=== PATIENT | female | born 1950 | race American Indian/Alaskan Native ===

== ENCOUNTER 2017-11-10 14:54 | Emergency (ER) | payer MEDICARE ==
[2017-11-10 14:54] VITALS: BMI 36.8
--- NOTE | 2017-11-10 15:46 | C.PDOC ---
History Of Present Illness 67 year old female, whose PMHx includes HTN, presents to the ED for evaluation after she felt dizzy and "whoozy" easlier today. Patient works at the [employer]'s office; her coworker took her blood pressure, found it to be systolic 273. Repeat blood pressure was systolic 219. Patient was evaluated by her PMD Dr. Campbell on 11/05, who increased her Losartan dosing. Patient states Losartan 100mg BID, Coreg 25mg, and Metformin prophylactically. Patient denies chest pain, shortness of breath, and headache. surgical history includes tonsillectomy Patient denies allergies. She denies alcohol/tobacco use. Time Seen by Provider: 11/10/17 15:03 Chief Complaint (Nursing): High Blood Pressure History Per: Patient History/Exam Limitations: no limitations Onset/Duration Of Symptoms: Hrs Current Symptoms Are (Timing): Still Present Associated Symptoms: denies: Chest Pain Exacerbating Factor(s): Pos: Recent Change In Medication Additional History Per: Patient Past Medical History Reviewed: Historical Data, Nursing Documentation, Vital Signs Vital Signs: Last Vital Signs Temp 98.4 F 11/10/17 18:50 Pulse 52 L 11/10/17 18:50 Resp 16 11/10/17 18:50 BP 158/52 H 11/10/17 18:50 Pulse Ox 99 11/10/17 22:59 - Medical History PMH: Diabetes, HTN Surgical History: Tonsillectomy - [facility] COLONOSCOPY (10/27/02) Family History: States: Unknown Family Hx - Social History Hx Tobacco Use: No Hx Alcohol Use: No Hx Substance Use: No - Immunization History Hx Tetanus Toxoid Vaccination: No Hx Influenza Vaccination: No Hx Pneumococcal Vaccination: No Review Of Systems Constitutional: Negative for: Fever, Chills Eyes: Negative for: Pain, Vision Change, Conjunctivae Inflammation ENT: Negative for: Ear Pain, Ear Discharge, Nose Pain, Nose Discharge Cardiovascular: Negative for: Chest Pain, Palpitations, Orthopnea, Paroxysmal Noc. Dyspnea, Edema, Light Headedness Respiratory: Negative for: Cough, Shortness of Breath, Hemoptysis, SOB with Excertion, Pleuritic Pain, Sputum, Wheezing Gastrointestinal: Negative for: Nausea, Vomiting, Abdominal Pain, Constipation Genitourinary: Negative for: Dysuria, Frequency, Incontinence, Hematuria Musculoskeletal: Negative for: Neck Pain, Shoulder Pain, Back Pain, Hand Pain Skin: Negative for: Rash Neurological: Positive for: Dizziness. Negative for: Weakness, Numbness, Incoordination, Change in Speech, Confusion, Seizures, Altered Mental Status, Headache Psych: Negative for: Anxiety, Depression, Psychosis Physical Exam - Physical Exam Appears: Non-toxic, No Acute Distress Skin: Normal Color Head: Atraumatic Eye(s): bilateral: Normal Inspection, PERRL, EOMI Ear(s): Bilateral: Normal Nose: Normal Oral Mucosa: Moist Tongue: Normal Appearing Lips: Normal Appearing Teeth: Normal Dentition Gingiva: Normal Appearing Throat: Normal Neck: Normal, Normal ROM Chest: Symmetrical Cardiovascular: Rhythm Regular Respiratory: Normal Breath Sounds, No Decreased Breath Sounds Gastrointestinal/Abdominal: Normal Exam Back: Normal Inspection Extremity: Bilateral: Atraumatic, No Pedal Edema, Normal Color And Temperature, Normal ROM Neurological/Psych: Oriented x3 ED Course And Treatment - Laboratory Results Result Diagrams: 11/10/17 17:27 11/10/17 17:27 ECG: Interpreted By Me, Viewed By Me ECG Rhythm: Sinus Bradycardia Interpretation Of ECG: Sinus Bradycardia at rate 52bpm. Q waves in V1, V2. T wave inversion in I and aVF. OR iterval 150ms. QRS duration 76ms. QT/QTc 442/ 411. P-R-T axes 39/-9/102. no prior ekg for comparison Rate From EC O2 Sat by Pulse Oximetry: 99 (on RA) Pulse Ox Interpretation: Normal Critical Care Time - Critical Care Note Total Time (in mins): 35 Documented critical care: time excludes all time spent performing seperately billable procedures. Medical Decision Making Medical Decision Making: Progress: Patient's blood pressure at bedside is 210/80. She states she does not feel as "whoozy" as she did earlier. Bloodwork, CXR, EKG ordered and reviewed. troponin is negative. labs are unremarkable. Vasotec 1.25mg IV given for blood pressure control. Total criticalcaretime was 35 minute.s pt was reassessed multipel times for improvement., labs ordered and reviewe. pulse ox 100% cardiac exercise specialist continuous. cxr ordered and reviewed cxr ordered and reviewed Patient has blood pressure around 150s/80s after given Vasotec. Patient feels better and is stable for discharge. Advised to follow up with her PMD within 1-2 days for further eval. return to ED if worsen Disposition Counseled Patient/Family Regarding: Diagnosis, Need For Followup - Disposition Referrals: Micaela Campbell MD [Staff Provider] - Disposition: HOME/ ROUTINE Disposition Time: 18:59 Condition: GOOD Additional Instructions: return if symptoms return or worsen Instructions: High Blood Pressure in Adults Forms: [facility] ([place]) - Clinical Impression Clinical Impression: Abnormal blood pressure, Hypertension
--- NOTE | 2017-11-10 17:15 | RAD ---
Date of service: 11/10/2017 HISTORY: chest pain COMPARISON: 05/14/2017 TECHNIQUE: Chest PA and lateral FINDINGS: LUNGS: No active pulmonary disease. PLEURA: No significant pleural effusion identified. No pneumothorax apparent. CARDIOVASCULAR: Heart size probably top-normal and an mildly prominent ectatic thoracic aorta. OSSEOUS STRUCTURES: Thoracic spondylosis as before. VISUALIZED UPPER ABDOMEN: Normal. OTHER FINDINGS: None. IMPRESSION: No interval pathology noted
[2017-11-10 17:31] LABS: BASO % 0.9 % (0.0-2.0); EOS # 0.2 K/uL (0.0-0.7); EOS % 3.3 % (0.0-4.0); HEMOGLOBIN 12.3 g/dL (11.0-16.0); LYMPH # 2.2 K/uL (1.0-4.3); LYMPH % 46.3 % (20.0-40.0); MEAN CELL VOLUME 79.9 fL (81.0-99.0); MEAN CORPUSCULAR HEMOGLOBIN 25.7 pg (27.0-31.0); MEAN CORPUSCULAR HGB CONC 32.2 g/dL (33.0-37.0); MEAN PLATELET VOLUME 9.9 fL (7.2-11.7); MONO # 0.4 K/uL (0.0-0.8); MONO % 8.9 % (0.0-10.0); NEUT % 40.6 % (50.0-75.0); NRBC % 0.1 % (0.0-2.0); RBC 4.8 Mil/uL (3.80-5.20); RED CELL DISTRIBUTION WIDTH 16.2 % (11.5-14.5); WHITE BLOOD COUNT 4.8 K/uL (4.8-10.8)
[2017-11-10 17:43] LABS: ALB/GLOB RATIO 1.3 (1.0-2.1); ALT/SGPT 24 U/L (9-52); AST/SGOT 22 U/L (14-36); BLOOD UREA NITROGEN 14 mg/dL (7-17); CALCIUM 9.5 mg/dl (8.6-10.4); GFR AFRICAN-AMERICAN > 60; GFR NON-AFRICAN AMERICAN > 60
[2017-11-10 17:55] LABS: B-TYPE NATRIURETIC PEPTIDE 93.5 pg/mL (0-900)
[2017-11-10 18:11] VITALS: PULSE 52
[2017-11-10 18:14] VITALS: RESP 16; O2SAT 99
[2017-11-10] MEDS ORDERED: Enalaprilat 2.5 MG/2 ML IV ONE (18:18)
[2017-11-10] MEDS ORDERED: Enalaprilat 2.5 MG/2 ML ONE (18:27)
[2017-11-10 19:04] VITALS: BP 158/52; TEMP 98.4
--- NOTE | 2017-11-10 20:45 | CARD ---
APPROVED REPORT Date of service: 11/10/2017 EKG Measurement Heart [id number] <Conclusion> Sinus bradycardia Septal infarct, age undetermined T wave abnormality, consider lateral ischemia Abnormal ECG
== END 2017-11-10 19:22 | disposition home or self-care (01) ==
LOC: C.ER 14:54
DX: I10 Essential (primary) hypertension (principal)

== ENCOUNTER 2018-07-16 10:06 | Outpatient (CLI) | payer MEDICARE | END 2018-07-16 10:07 | disposition home or self-care (01) | LOC: C.DEXAIC 10:07 ==

== ENCOUNTER 2018-09-02 08:46 | Outpatient (CLI) | payer MEDICARE | END 2018-09-02 08:47 | disposition home or self-care (01) | LOC: C.USIC 08:47 ==